=== PATIENT | female | born 1980 | race American Indian/Alaskan Native ===

== ENCOUNTER 2018-08-29 14:57 | Emergency (ER) | payer BC, OTHER ==
[2018-08-29 15:02] VITALS: BP 120/86
--- NOTE | 2018-08-29 15:10 | Emergency Department Report ---
Blank Doc - Documentation Documentation: 38 yo female presents to ED cc of lower back pain and left hip pain x 2 months now thats worsening in 3 days. isnt able to get her epidural shot due to insurance issues denies recent injury states need pain relief
[2018-08-29] MEDS ORDERED: TORADOL IM ONE (15:55)
[2018-08-29] MEDS ORDERED: NORCO 5/325 PO ONE (15:55)
--- NOTE | 2018-08-29 16:04 | Emergency Department Report ---
ED Lower Extremity HPI - General Chief Complaint: Back Pain/Injury Stated Complaint: HIP/LOWER BACK PAIN Time Seen by Provider: 08/29/18 15:04 Source: patient Mode of arrival: Wheelchair Limitations: No Limitations - History of Present Illness Initial Comments: Mrs. Hedrick is a 38 yo female who experienced a severe injury last summer month of October while at work. She subsequently developed injury at the SI joint. She has been followed by orthopedic surgeon Dr. Granados in [place]. She has underwent chiropractor manipulation and physical therapy. She receives relief with steroid injections at the SI joint which occurs every few months. She is awaiting insurance to approve a subsequent steroid injection. However she requests pain relief. MD Complaint: hip injury -: month(s) (10) Injury: Hip: Left Type of Injury: blunt, other (twisting) Place: work Severity: severe Worsens With: weight bearing Context: direct blow, other (twisting) Associated Symptoms: able to partially bear weight - Related Data Previous Rx's Medication Instructions Recorded Last Taken Type HYDROcodone/ACETAMINOPHEN [Vicodin 1 tab PO Q6HR PRN #8 tablet 04/14/18 Unknown Rx HP 10-300 mg TAB] Ibuprofen [Motrin 800 MG tab] 800 mg PO Q8HR PRN #15 tablet 04/14/18 Unknown Rx HYDROcodone/APAP 5-325 [[place] 1 each PO Q6HR PRN #10 tablet 08/29/18 Unknown Rx 5/325] Ibuprofen 800 mg PO TID 5 Days #15 tablet 08/29/18 Unknown Rx Allergies Allergy/AdvReac Type Severity Reaction Status Date / Time No Known Allergies Allergy Unverified 04/14/18 08:28 ED Review of Systems ROS: Stated complaint: HIP/LOWER BACK PAIN Other details as noted in HPI ED Past Medical Hx - Past Medical History Previous Medical History?: Yes Additional medical history: fibroids - Surgical History Past Surgical History?: No - Social History Smoking Status: Never Smoker Substance Use Type: None - Medications Home Medications: Home Medications Medication Instructions Recorded Confirmed Last Taken Type HYDROcodone/ACETAMINOPHEN [Vicodin 1 tab PO Q6HR PRN #8 tablet 04/14/18 Unknown Rx HP 10-300 mg TAB] Ibuprofen [Motrin 800 MG tab] 800 mg PO Q8HR PRN #15 tablet 04/14/18 Unknown Rx HYDROcodone/APAP 5-325 [[place] 1 each PO Q6HR PRN #10 tablet 08/29/18 Unknown Rx 5/325] Ibuprofen 800 mg PO TID 5 Days #15 tablet 08/29/18 Unknown Rx ED Physical Exam - General Limitations: No Limitations General appearance: alert, in no apparent distress - Head Head exam: Present: atraumatic, normocephalic - Neck Neck exam: Present: normal inspection, full ROM - Respiratory Respiratory exam: Present: normal lung sounds bilaterally. Absent: respiratory distress, wheezes, rales, rhonchi - Back Exam Back exam: Present: other (Tenderness Left SI) - Neurological Exam Neurological exam: Present: alert, oriented X3 ED Course Vital Signs 08/29/18 15:00 Temperature 98.4 F Pulse Rate 102 H Respiratory 18 Rate Blood Pressure 120/86 O2 Sat by Pulse 98 Oximetry ED Lower Extremity MDM - Medical Decision Making chronic pain due to SI injury rx: norco ibuprofen Critical care attestation.: If time is entered above; I have spent that time in minutes in the direct care of this critically ill patient, excluding procedure time. ED Disposition Clinical Impression: Sacroiliac joint dysfunction of left side Disposition: DC-01 TO HOME OR SELFCARE Is pt being admited?: No Does the pt Need Aspirin: No Condition: Stable Additional Instructions: Please see disease intervention specialist as discussed. Prescriptions: Ibuprofen 800 mg PO TID 5 Days #15 tablet HYDROcodone/APAP 5-325 [[place] 5/325] 1 each PO Q6HR PRN #10 tablet PRN Reason: Pain Referrals: SHONNA HARTMAN MD [Staff Physician] - 3-5 Days
== END 2018-08-29 16:18 | disposition home or self-care (01) ==
LOC: ED 14:57
DX: M53.3 Sacrococcygeal disorders, not elsewhere classified (principal)
CPT/HCPCS: 96372; 99282; J1885